=== PATIENT | female | born 1975 | race Caucasian/White ===

== ENCOUNTER 2019-11-01 13:53 | Inpatient (IN) | payer MEDICAID ==
[~2019-11-01] VITALS: Ht 162.6 cm; Wt 68.1 kg
[~2019-11-01 13:53] MED LIST: RISP3 PO
[2019-11-01] MEDS ORDERED: LORazepam 2 MG TABLET PO PRN (17:30)
[2019-11-01] MEDS ORDERED: HALOPERIDOL 5 MG TABLET PO PRN (17:30)
[2019-11-01] MEDS ORDERED: ZOLPIDEM TARTRATE 10 MG TABLET PO PRN (17:30)
[2019-11-01 17:59] VITALS: BP 115/84
[2019-11-01] MEDS ORDERED: INFLUENZA VIRUS VACCINE QVS 2019-20 (3YR+)/PF 60 MCG/0.5 ML SYRINGE IM ONE (18:00)
[2019-11-01] MEDS ORDERED: PIPERONYL BUTOXIDE/PYRETHRINS 120 ML SHAMPOO TP ONE (18:45)
[2019-11-01] MEDS ORDERED: PERMETHRIN 5% 60 GM CREAM TP ONE (18:45)
[2019-11-01] MEDS ORDERED: GuaiFENesin/D-METHORPHAN [SUGAR-FREE] 200-20MG/10 ML SYRUP UDCUP PO PRN (20:30)
[2019-11-01] MEDS ORDERED: IBUPROFEN 400 MG TABLET PO PRN (20:30)
[2019-11-01] MEDS ORDERED: MAGNESIUM HYDROXIDE SUSPENSION 30 ML UDCUP PO PRN (20:30)
[2019-11-01] MEDS ORDERED: NICOTINE 14 MG/24 HOUR PATCH TD PRN (20:30)
[2019-11-01] MEDS ORDERED: ONDANSETRON HCL 4 MG TABLET PO PRN (20:30)
[2019-11-01] MEDS ORDERED: DOCUSATE SODIUM 100 MG CAPSULE PO PRN (20:30)
[2019-11-01] MEDS ORDERED: CloNIDine HCL 0.1 MG TABLET PO PRN (20:30)
[2019-11-01] MEDS ORDERED: MAG HYDROX/AL HYDROX/SIMETH ES 30 ML SUSPENSION UDCUP PO PRN (20:30)
[2019-11-01] MEDS ORDERED: ACETAMINOPHEN 325 MG TABLET PO PRN (20:30)
[2019-11-01] MEDS ORDERED: LOPERAMIDE HCL 2 MG CAPSULE PO PRN (20:30)
[2019-11-01] MEDS ORDERED: PETROLATUM,WHITE 28 GM JELLY TP PRN (20:30)
[2019-11-01] MEDS ORDERED: ALBUTEROL SULFATE HFA 90 MCG/PUFF 8 GM INHALER IH PRN (20:30)
[2019-11-02 00:58] VITALS: BP 105/78
[2019-11-02 08:08] VITALS: BP 100/65
[2019-11-02] MEDS: RisperiDONE 2 MG TABLET PO SCH ×2 (12:38→21:35)
[2019-11-02 20:25] VITALS: BP 92/67
[2019-11-03] MEDS: RisperiDONE 2 MG TABLET PO SCH ×2 (08:54→21:00)
[2019-11-03 16:19] VITALS: BP 102/64
[2019-11-04 08:08] VITALS: BP 114/63
[2019-11-04] MEDS: RisperiDONE 2 MG TABLET PO SCH ×2 (08:22→20:49)
[2019-11-04] MEDS ORDERED: PIPERONYL BUTOXIDE/PYRETHRINS 120 ML SHAMPOO TP ONE (09:00)
[2019-11-04 16:06] VITALS: BP 106/66
[2019-11-05 02:39] VITALS: BP 112/68
[2019-11-05] MEDS: RisperiDONE 2 MG TABLET PO SCH ×2 (07:58→20:32)
[2019-11-05 16:00] VITALS: BP 106/68
[2019-11-06] MEDS: RisperiDONE 2 MG TABLET PO SCH ×2 (08:08→20:57)
[2019-11-06 17:20] VITALS: BP 104/65
[2019-11-07] MEDS: RisperiDONE 2 MG TABLET PO SCH (08:00)
[2019-11-07 08:05] VITALS: BP 100/74
[2019-11-07] MEDS ORDERED: RisperiDONE 3 MG TABLET PO SCH (09:45)
[2019-11-07] MEDS ORDERED: RisperiDONE 1 MG TABLET PO ONE (10:00)
[2019-11-07 16:05] VITALS: BP 116/65
[2019-11-07] MEDS: RisperiDONE 3 MG TABLET PO SCH (21:00)
[2019-11-08 06:47] VITALS: BP 95/67
[2019-11-08 08:25] VITALS: BP 114/61
[2019-11-08] MEDS: MULTIVITAMINS WITH MINERALS, THERAPEUTIC TABLET PO SCH (08:34)
[2019-11-08] MEDS: RisperiDONE 3 MG TABLET PO SCH ×2 (08:34→20:20)
[2019-11-08 16:15] VITALS: BP 106/65
[2019-11-09 04:52] VITALS: BP 101/62
[2019-11-09] MEDS: MULTIVITAMINS WITH MINERALS, THERAPEUTIC TABLET PO SCH (08:08)
[2019-11-09] MEDS: RisperiDONE 3 MG TABLET PO SCH ×2 (08:08→19:24)
[2019-11-09 08:10] VITALS: BP 100/68
[2019-11-09 16:00] VITALS: BP 115/68
[2019-11-10 05:10] VITALS: BP 105/72
[2019-11-10 08:01] VITALS: BP 98/66
[2019-11-10] MEDS: MULTIVITAMINS WITH MINERALS, THERAPEUTIC TABLET PO SCH (08:17)
[2019-11-10] MEDS: RisperiDONE 3 MG TABLET PO SCH ×2 (08:18→20:51)
[2019-11-10 08:41] LABS: HEMATOCRIT 39.7 % (36-46); HEMOGLOBIN 12.8 g/dL (12.0-16.0); LYMPHOCYTES # (AUTO) 1.8 K/uL (1.0-4.8); LYMPHOCYTES % (AUTO) 34.7 % (22.0-44.0); MEAN CORPUSCULAR HGB CONC 32.3 G/dL (31.0-37.0); MEAN CORPUSCULAR VOLUME 80 fL (80-100); MONOCYTES # (AUTO) 0.4 K/uL (0.1-1.0); MONOCYTES % (AUTO) 7.5 % (2.0-9.0); NEUTROPHILS # (AUTO) 2.5 K/uL (1.8-7.7); NEUTROPHILS % (AUTO) 47.8 % (40.0-70.0); PLATELET COUNT (AUTO) 195 K/uL (150-450); RED BLOOD CELL COUNT(AUTO) 4.94 MIL/uL (4.00-5.20); RED CELL DISTRIBUTION WIDTH 19.4 % (11.5-14.5)
[2019-11-10 09:11] LABS: HEMOGLOBIN A1C 5.5 % (4.5-6.2)
[2019-11-10 09:23] LABS: ALANINE AMINOTRANSFERASE 19 U/L (12-78); ALBUMIN 3.3 g/dL (3.4-5.0); ALKALINE PHOSPHATASE 63 U/L (46-116); ANION GAP 4 mmol/L (8-16); ASPARTATE AMINOTRANSFERASE 10 U/L (15-37); BILIRUBIN,TOTAL 0.1 mg/dL (0.1-1.0); CALCIUM, TOTAL 8.8 mg/dL (8.8-10.5); CARBON DIOXIDE 31 mmol/L (22-29); CHLORIDE 106 mmol/L (98-107); CHOL/HDL RATIO 4.7 (3.9-5.7); CHOLESTEROL 211 mg/dL (131-200); CREATININE 0.69 mg/dL (0.60-1.30); FREE T4 (FREE THYROXINE) 0.78 ng/dL (0.76-1.46); GLOMERULAR FILTR. RATE CALC > 60 mL/min (>60); GLUCOSE,RANDOM 87 mg/dL (70-110); HDL CHOLESTEROL 45 mg/dL (40-60); LDL CHOL (CALC.) 151 mg/dL (0-130); POTASSIUM 4.2 mmol/L (3.5-5.1); SODIUM SERUM 141 mmol/L (136-145); THYROID STIMULATING HORMONE 0.94 uIU/mL (0.36-3.74); TOTAL PROTEIN, SERUM 6.2 g/dL (6.4-8.2); TRIGLYCERIDES 76 mg/dL (15-150); UREA NITROGEN, BLOOD 12 mg/dL (7-18)
[2019-11-10] MEDS: BuPROPion HCL XL 150 MG ER TABLET PO SCH (12:29)
[2019-11-10 16:45] VITALS: BP 100/69
[2019-11-11 04:25] VITALS: BP 101/62
[2019-11-11] MEDS: RisperiDONE 3 MG TABLET PO SCH ×2 (08:28→21:05)
[2019-11-11] MEDS: BuPROPion HCL XL 150 MG ER TABLET PO SCH (08:28)
[2019-11-11] MEDS: MULTIVITAMINS WITH MINERALS, THERAPEUTIC TABLET PO SCH (08:28)
[2019-11-11 08:32] VITALS: BP 123/78
[2019-11-11 16:00] VITALS: BP 101/66
[2019-11-12 04:59] VITALS: BP 100/76
[2019-11-12 08:05] VITALS: BP 106/65
[2019-11-12] MEDS: BuPROPion HCL XL 150 MG ER TABLET PO SCH (08:35)
[2019-11-12] MEDS: RisperiDONE 3 MG TABLET PO SCH ×2 (08:35→20:04)
[2019-11-12] MEDS: MULTIVITAMINS WITH MINERALS, THERAPEUTIC TABLET PO SCH (08:35)
[2019-11-12 16:40] VITALS: BP 106/62
[2019-11-13 05:01] VITALS: BP 100/65
[2019-11-13] MEDS: RisperiDONE 3 MG TABLET PO SCH ×2 (08:21→20:33)
[2019-11-13] MEDS: BuPROPion HCL XL 150 MG ER TABLET PO SCH (08:21)
[2019-11-13] MEDS: MULTIVITAMINS WITH MINERALS, THERAPEUTIC TABLET PO SCH (08:21)
[2019-11-13] MEDS: MULTIVITAMINS WITH MINERALS, THERAPEUTIC 15 ML UDCUP PO SCH (10:15)
[2019-11-13 17:44] VITALS: BP 96/67
[2019-11-14 04:39] VITALS: BP 100/62
[2019-11-14] MEDS: MULTIVITAMINS WITH MINERALS, THERAPEUTIC 15 ML UDCUP PO SCH (08:18)
[2019-11-14] MEDS: BuPROPion HCL XL 150 MG ER TABLET PO SCH (08:19)
[2019-11-14] MEDS: RisperiDONE 3 MG TABLET PO SCH ×2 (08:19→21:15)
[2019-11-14 11:10] VITALS: BP 87/61
[2019-11-14 18:15] VITALS: BP 117/72
[2019-11-15 05:43] VITALS: BP 112/62
[2019-11-15 08:04] VITALS: BP 117/60
[2019-11-15] MEDS: RisperiDONE 3 MG TABLET PO SCH ×2 (08:25→20:18)
[2019-11-15] MEDS: MULTIVITAMINS WITH MINERALS, THERAPEUTIC 15 ML UDCUP PO SCH (08:25)
[2019-11-15] MEDS: BuPROPion HCL XL 150 MG ER TABLET PO SCH (08:25)
[2019-11-15 16:00] VITALS: BP 108/74
[2019-11-16 05:06] VITALS: BP 101/62
[2019-11-16 08:11] VITALS: BP 90/51
[2019-11-16] MEDS: BuPROPion HCL XL 150 MG ER TABLET PO SCH (08:14)
[2019-11-16] MEDS: RisperiDONE 3 MG TABLET PO SCH ×2 (08:14→21:23)
[2019-11-16] MEDS: MULTIVITAMINS WITH MINERALS, THERAPEUTIC 15 ML UDCUP PO SCH (08:17)
[2019-11-16] MEDS: DIVALPROEX SODIUM 500 MG DR TABLET PO SCH ×2 (14:57→21:23)
[2019-11-16 16:01] VITALS: BP 113/73
[2019-11-17 05:31] VITALS: BP 138/75
[2019-11-17 08:01] VITALS: BP 90/60
[2019-11-17] MEDS: BuPROPion HCL XL 150 MG ER TABLET PO SCH (08:05)
[2019-11-17] MEDS: RisperiDONE 3 MG TABLET PO SCH ×2 (08:05→20:19)
[2019-11-17] MEDS: DIVALPROEX SODIUM 500 MG DR TABLET PO SCH ×2 (08:08→20:18)
[2019-11-17] MEDS: MULTIVITAMINS WITH MINERALS, THERAPEUTIC 15 ML UDCUP PO SCH (08:11)
[2019-11-17 19:17] VITALS: BP 94/60
[2019-11-18 04:50] VITALS: BP 100/77
[2019-11-18 08:24] VITALS: BP 100/53
[2019-11-18] MEDS: MULTIVITAMINS WITH MINERALS, THERAPEUTIC 15 ML UDCUP PO SCH (09:00)
[2019-11-18] MEDS: BuPROPion HCL XL 150 MG ER TABLET PO SCH (09:05)
[2019-11-18] MEDS: DIVALPROEX SODIUM 500 MG DR TABLET PO SCH ×2 (09:05→20:14)
[2019-11-18] MEDS: RisperiDONE 3 MG TABLET PO SCH ×2 (09:05→20:14)
[2019-11-18 16:01] VITALS: BP 97/65
[2019-11-19 04:33] VITALS: BP_SYST 101; BP_SYST 76; BP_DIAS 101; BP_DIAS 76
[2019-11-19] MEDS: BuPROPion HCL XL 150 MG ER TABLET PO SCH (08:06)
[2019-11-19] MEDS: DIVALPROEX SODIUM 500 MG DR TABLET PO SCH ×2 (08:06→20:29)
[2019-11-19] MEDS: RisperiDONE 3 MG TABLET PO SCH ×2 (08:06→20:28)
[2019-11-19] MEDS: MULTIVITAMINS WITH MINERALS, THERAPEUTIC 15 ML UDCUP PO SCH (08:09)
[2019-11-19 08:16] VITALS: BP 101/62
[2019-11-19 16:12] VITALS: BP 100/61
[2019-11-20 04:58] VITALS: BP 105/65
[2019-11-20 08:15] VITALS: BP 100/62
[2019-11-20] MEDS: BuPROPion HCL XL 150 MG ER TABLET PO SCH (09:19)
[2019-11-20] MEDS: DIVALPROEX SODIUM 500 MG DR TABLET PO SCH ×2 (09:19→20:27)
[2019-11-20] MEDS: MULTIVITAMINS WITH MINERALS, THERAPEUTIC 15 ML UDCUP PO SCH (09:19)
[2019-11-20] MEDS: RisperiDONE 3 MG TABLET PO SCH ×2 (09:19→20:27)
[2019-11-20 16:04] VITALS: BP 99/68
[2019-11-21 05:06] VITALS: BP 101/62
[2019-11-21 08:08] VITALS: BP 98/60
[2019-11-21] MEDS: RisperiDONE 3 MG TABLET PO SCH (08:21)
[2019-11-21] MEDS: DIVALPROEX SODIUM 500 MG DR TABLET PO SCH (08:22)
[2019-11-21] MEDS: MULTIVITAMINS WITH MINERALS, THERAPEUTIC 15 ML UDCUP PO SCH (08:36)
[2019-11-21] MEDS ORDERED: BuPROPion HCL XL 150 MG ER TABLET PO SCH (09:00)
[2019-11-21] MEDS ORDERED: DIVA-78 PO (09:07)
[2019-11-21] MEDS ORDERED: BUPR-47 PO (09:07)
[2019-11-21] MEDS ORDERED: RISP3 PO (09:07)
[2019-11-21 16:11] VITALS: BP 96/66
== END 2019-11-21 18:36 | disposition home or self-care (01) | DRG 750 ==
LOC: B3A 17:29
PROVIDERS: ADMIT Psychiatry & Neurology Child & Adolescent Psychiatry
DX: F25.1 Schizoaffective disorder, depressive type (principal); R45.851 Suicidal ideations; Z59.0 Homelessness; D64.9 Anemia, unspecified; B85.0 Pediculosis due to Pediculus humanus capitis; J45.909 Unspecified asthma, uncomplicated; Z79.899 Other long term (current) drug therapy; Z28.21 Immunization not carried out because of patient refusal
CPT/HCPCS: 83036; 84439; 84443; 90686

== ENCOUNTER 2020-05-29 17:19 | Inpatient (IN) | payer MEDICAID, OTHER ==
[~2020-05-29] VITALS: Ht 162.6 cm; Wt 65.4 kg
[~2020-05-29 17:19] MED LIST changes: +BUPR-47 PO; +DIVA-112 PO; -RISP3 PO; +RISP3TAB14 PO
[2020-05-29 17:54] LABS: BASOPHILS % (AUTO) 1.3 % (0.0-2.0); HEMATOCRIT 38.4 % (36-46); HEMOGLOBIN 12.4 g/dL (12.0-16.0); LYMPHOCYTES # (AUTO) 1.8 K/uL (1.0-4.8); LYMPHOCYTES % (AUTO) 26.1 % (22.0-44.0); MEAN CORPUSCULAR HEMOGLOBIN 25.5 pg (26.0-34.0); MEAN CORPUSCULAR HGB CONC 32.2 G/dL (31.0-37.0); MEAN CORPUSCULAR VOLUME 79 fL (80-100); MONOCYTES # (AUTO) 0.5 K/uL (0.1-1.0); MONOCYTES % (AUTO) 6.7 % (2.0-9.0); NEUTROPHILS # (AUTO) 4.6 K/uL (1.8-7.7); NEUTROPHILS % (AUTO) 64.9 % (40.0-70.0); PLATELET COUNT (AUTO) 331 K/uL (150-450); RED BLOOD CELL COUNT(AUTO) 4.85 MIL/uL (4.00-5.20); RED CELL DISTRIBUTION WIDTH 15.8 % (11.5-14.5)
[2020-05-29 18:10] LABS: ANION GAP 15 mmol/L (8-16); CALCIUM, TOTAL 9.6 mg/dL (8.8-10.5); CARBON DIOXIDE 24 mmol/L (22-29); CHLORIDE 103 mmol/L (98-107); CREATININE 1.15 mg/dL (0.60-1.30); GLOMERULAR FILTR. RATE CALC 51 mL/min (>60); GLUCOSE,RANDOM 154 mg/dL (70-110); POTASSIUM 3.2 mmol/L (3.5-5.1); SODIUM SERUM 142 mmol/L (136-145); UREA NITROGEN, BLOOD 21 mg/dL (7-18)
[2020-05-29 18:17] LABS: ALANINE AMINOTRANSFERASE 22 U/L (12-78); ALKALINE PHOSPHATASE 79 U/L (46-116); ASPARTATE AMINOTRANSFERASE 15 U/L (15-37); BILIRUBIN,TOTAL 0.6 mg/dL (0.1-1.0); HCG,QUANTITATIVE < 1 mIU/mL (0-6); TOTAL PROTEIN, SERUM 8.3 g/dL (6.4-8.2)
[2020-05-29 18:18] LABS: VALPROIC ACID < 3 mcg/mL (50-100)
[2020-05-29] MEDS ORDERED: HALOPERIDOL 5 MG TABLET PO ONE (19:15)
[2020-05-29] MEDS ORDERED: BENZTROPINE MESYLATE 2 MG TABLET PO ONE (19:15)
[2020-05-29] MEDS ORDERED: POTASSIUM CHLORIDE 10% 40 MEQ/30 ML LIQUID UDCUP PO ONE (19:15)
[2020-05-29] MEDS ORDERED: LORazepam 2 MG TABLET PO PRN (20:00)
[2020-05-29] MEDS ORDERED: HALOPERIDOL 5 MG TABLET PO PRN (20:00)
[2020-05-29] MEDS ORDERED: ZOLPIDEM TARTRATE 10 MG TABLET PO PRN (20:00)
[2020-05-29 22:03] VITALS: BP 111/81
[2020-05-30] MEDS ORDERED: PNEUMOCOCCAL VACCINE POLYVALENT 0.5 ML VIAL [PPSV23] IM ONE (00:30)
[2020-05-30 01:25] VITALS: BP 105/78
[2020-05-30] MEDS ORDERED: MAG HYDROX/AL HYDROX/SIMETH ES 30 ML SUSPENSION UDCUP PO PRN (07:15)
[2020-05-30] MEDS ORDERED: DOCUSATE SODIUM 100 MG CAPSULE PO PRN (07:15)
[2020-05-30] MEDS ORDERED: LOPERAMIDE HCL 2 MG CAPSULE PO PRN (07:15)
[2020-05-30] MEDS ORDERED: CloNIDine HCL 0.1 MG TABLET PO PRN (07:15)
[2020-05-30] MEDS ORDERED: MAGNESIUM HYDROXIDE SUSPENSION 30 ML UDCUP PO PRN (07:15)
[2020-05-30] MEDS ORDERED: ALBUTEROL SULFATE HFA 90 MCG/PUFF 8 GM INHALER IH PRN (07:15)
[2020-05-30] MEDS ORDERED: PETROLATUM,WHITE 28 GM JELLY TP PRN (07:15)
[2020-05-30] MEDS ORDERED: NICOTINE 14 MG/24 HOUR PATCH TD PRN (07:15)
[2020-05-30] MEDS ORDERED: GuaiFENesin/D-METHORPHAN [SUGAR-FREE] 200-20MG/10 ML SYRUP UDCUP PO PRN (07:15)
[2020-05-30] MEDS ORDERED: ACETAMINOPHEN 325 MG TABLET PO PRN (07:15)
[2020-05-30] MEDS ORDERED: IBUPROFEN 400 MG TABLET PO PRN (07:15)
[2020-05-30] MEDS ORDERED: ONDANSETRON HCL 4 MG TABLET PO PRN (07:15)
[2020-05-30 17:35] VITALS: BP 100/76
[2020-05-30] MEDS: DIVALPROEX SODIUM 500 MG DR TABLET PO SCH (20:14)
[2020-05-30] MEDS: RisperiDONE 3 MG TABLET PO SCH (20:14)
[2020-05-31] MEDS: DIVALPROEX SODIUM 500 MG DR TABLET PO SCH ×2 (08:47→20:23)
[2020-05-31] MEDS: RisperiDONE 3 MG TABLET PO SCH ×2 (08:47→20:23)
[2020-05-31] MEDS: BuPROPion HCL XL 150 MG ER TABLET PO SCH (08:47)
[2020-05-31 09:06] VITALS: BP 105/64
[2020-05-31 09:17] LABS: CHOL/HDL RATIO 6.8 (3.9-5.7); FREE T4 (FREE THYROXINE) 1.53 ng/dL (0.76-1.46); POTASSIUM 3.4 mmol/L (3.5-5.1); THYROID STIMULATING HORMONE 1.18 uIU/mL (0.36-3.74)
[2020-05-31] MEDS ORDERED: POTASSIUM CHLORIDE 20 MEQ ER TABLET PO ONE (15:30)
[2020-05-31 16:45] VITALS: BP 106/60
[2020-05-31] MEDS: SIMVASTATIN 10 MG TABLET PO SCH (20:23)
[2020-06-01 02:00] VITALS: BP 102/61
[2020-06-01] MEDS: BuPROPion HCL XL 150 MG ER TABLET PO SCH (09:00)
[2020-06-01] MEDS: RisperiDONE 3 MG TABLET PO SCH ×2 (09:00→20:49)
[2020-06-01] MEDS: DIVALPROEX SODIUM 500 MG DR TABLET PO SCH ×2 (09:00→20:49)
[2020-06-01 09:38] VITALS: BP 135/78
[2020-06-01] MEDS: SIMVASTATIN 10 MG TABLET PO SCH (20:49)
[2020-06-02 02:14] VITALS: BP 110/84
[2020-06-02] MEDS: DIVALPROEX SODIUM 500 MG DR TABLET PO SCH ×2 (08:28→20:40)
[2020-06-02] MEDS: BuPROPion HCL XL 150 MG ER TABLET PO SCH (08:29)
[2020-06-02] MEDS: RisperiDONE 3 MG TABLET PO SCH ×2 (08:29→20:40)
[2020-06-02 09:21] VITALS: BP 98/72
[2020-06-02 16:25] VITALS: BP 108/74
[2020-06-02] MEDS: SIMVASTATIN 10 MG TABLET PO SCH (20:40)
[2020-06-03 04:13] VITALS: BP 115/70
[2020-06-03 08:23] VITALS: BP 105/65
[2020-06-03] MEDS: RisperiDONE 3 MG TABLET PO SCH ×2 (09:04→20:57)
[2020-06-03] MEDS: DIVALPROEX SODIUM 500 MG DR TABLET PO SCH ×2 (09:04→20:56)
[2020-06-03] MEDS: BuPROPion HCL XL 150 MG ER TABLET PO SCH (09:04)
[2020-06-03 16:10] VITALS: BP 100/71
[2020-06-03] MEDS: SIMVASTATIN 10 MG TABLET PO SCH (20:57)
[2020-06-04 04:04] VITALS: BP 113/67
[2020-06-04] MEDS: DIVALPROEX SODIUM 500 MG DR TABLET PO SCH ×2 (09:00→20:24)
[2020-06-04] MEDS: BuPROPion HCL XL 150 MG ER TABLET PO SCH (09:00)
[2020-06-04] MEDS: RisperiDONE 3 MG TABLET PO SCH ×2 (09:00→20:24)
[2020-06-04 09:06] VITALS: BP 106/62
[2020-06-04 16:04] VITALS: BP 102/69
[2020-06-04] MEDS: SIMVASTATIN 10 MG TABLET PO SCH (20:24)
[2020-06-05 05:29] VITALS: BP 112/70
[2020-06-05 08:24] VITALS: BP 89/56
[2020-06-05] MEDS: OMEGA-3/DHA/EPA/FISH OIL 1,000 MG CAPSULE PO SCH (08:42)
[2020-06-05] MEDS: DIVALPROEX SODIUM 500 MG DR TABLET PO SCH ×2 (08:42→20:03)
[2020-06-05] MEDS: RisperiDONE 3 MG TABLET PO SCH ×2 (08:42→20:03)
[2020-06-05] MEDS: BuPROPion HCL XL 150 MG ER TABLET PO SCH (08:42)
[2020-06-05 13:54] VITALS: BP 103/72
[2020-06-05 17:16] VITALS: BP 106/62
[2020-06-05] MEDS: SIMVASTATIN 10 MG TABLET PO SCH (20:03)
[2020-06-06 00:54] VITALS: BP 103/62
[2020-06-06] MEDS: RisperiDONE 3 MG TABLET PO SCH ×2 (11:09→20:17)
[2020-06-06] MEDS: OMEGA-3/DHA/EPA/FISH OIL 1,000 MG CAPSULE PO SCH (11:10)
[2020-06-06] MEDS: BuPROPion HCL XL 150 MG ER TABLET PO SCH (11:10)
[2020-06-06] MEDS: DIVALPROEX SODIUM 500 MG DR TABLET PO SCH ×2 (11:10→20:17)
[2020-06-06 11:12] VITALS: BP 106/60
[2020-06-06 16:41] VITALS: BP 124/71
[2020-06-06] MEDS: SIMVASTATIN 10 MG TABLET PO SCH (20:17)
[2020-06-07 06:29] VITALS: BP 111/69
[2020-06-07 08:19] VITALS: BP 110/70
[2020-06-07] MEDS: RisperiDONE 3 MG TABLET PO SCH ×2 (09:00→21:07)
[2020-06-07] MEDS: BuPROPion HCL XL 150 MG ER TABLET PO SCH (09:00)
[2020-06-07] MEDS: OMEGA-3/DHA/EPA/FISH OIL 1,000 MG CAPSULE PO SCH (09:00)
[2020-06-07] MEDS: DIVALPROEX SODIUM 500 MG DR TABLET PO SCH ×2 (09:00→21:07)
[2020-06-07 19:13] VITALS: BP 90/70
[2020-06-07] MEDS: SIMVASTATIN 10 MG TABLET PO SCH (21:07)
[2020-06-08 00:03] VITALS: BP 106/67
[2020-06-08] MEDS: OMEGA-3/DHA/EPA/FISH OIL 1,000 MG CAPSULE PO SCH (09:00)
[2020-06-08] MEDS: BuPROPion HCL XL 150 MG ER TABLET PO SCH (09:00)
[2020-06-08] MEDS: RisperiDONE 3 MG TABLET PO SCH ×2 (09:00→20:22)
[2020-06-08] MEDS: DIVALPROEX SODIUM 500 MG DR TABLET PO SCH ×2 (09:00→20:22)
[2020-06-08 09:18] VITALS: BP 109/67
[2020-06-08 16:00] VITALS: BP 89/65
[2020-06-08] MEDS: SIMVASTATIN 10 MG TABLET PO SCH (20:22)
[2020-06-09 00:32] VITALS: BP 119/75
[2020-06-09] MEDS: DIVALPROEX SODIUM 500 MG DR TABLET PO SCH ×2 (08:49→20:13)
[2020-06-09] MEDS: BuPROPion HCL XL 150 MG ER TABLET PO SCH (08:49)
[2020-06-09] MEDS: OMEGA-3/DHA/EPA/FISH OIL 1,000 MG CAPSULE PO SCH (08:49)
[2020-06-09] MEDS: RisperiDONE 3 MG TABLET PO SCH ×2 (08:49→20:13)
[2020-06-09 10:39] VITALS: BP 98/62
[2020-06-09 16:37] VITALS: BP 97/63
[2020-06-09] MEDS: SIMVASTATIN 10 MG TABLET PO SCH (20:13)
[2020-06-10 00:43] VITALS: BP 100/62
[2020-06-10] MEDS: DIVALPROEX SODIUM 500 MG DR TABLET PO SCH ×2 (09:17→20:07)
[2020-06-10] MEDS: RisperiDONE 3 MG TABLET PO SCH ×2 (09:17→20:07)
[2020-06-10] MEDS: OMEGA-3/DHA/EPA/FISH OIL 1,000 MG CAPSULE PO SCH (09:17)
[2020-06-10] MEDS: BuPROPion HCL XL 150 MG ER TABLET PO SCH (09:17)
[2020-06-10 14:06] VITALS: BP 98/62
[2020-06-10 16:30] VITALS: BP 95/60
[2020-06-10] MEDS: SIMVASTATIN 10 MG TABLET PO SCH (20:07)
[2020-06-11] VITALS: BP 100/61
[2020-06-11 08:16] VITALS: BP 133/81
[2020-06-11] MEDS: DIVALPROEX SODIUM 500 MG DR TABLET PO SCH ×2 (08:34→20:51)
[2020-06-11] MEDS: BuPROPion HCL XL 150 MG ER TABLET PO SCH (08:35)
[2020-06-11] MEDS: RisperiDONE 3 MG TABLET PO SCH ×2 (08:35→20:51)
[2020-06-11] MEDS: OMEGA-3/DHA/EPA/FISH OIL 1,000 MG CAPSULE PO SCH (09:00)
[2020-06-11 16:04] VITALS: BP 93/67
[2020-06-11] MEDS: SIMVASTATIN 10 MG TABLET PO SCH (20:51)
[2020-06-12 04:23] VITALS: BP 100/68
[2020-06-12] MEDS: BuPROPion HCL XL 150 MG ER TABLET PO SCH (09:00)
[2020-06-12] MEDS: RisperiDONE 3 MG TABLET PO SCH ×2 (09:00→20:07)
[2020-06-12] MEDS: OMEGA-3/DHA/EPA/FISH OIL 1,000 MG CAPSULE PO SCH (09:00)
[2020-06-12] MEDS: DIVALPROEX SODIUM 500 MG DR TABLET PO SCH ×2 (09:00→20:07)
[2020-06-12 17:50] VITALS: BP 90/63
[2020-06-12] MEDS: SIMVASTATIN 10 MG TABLET PO SCH (20:07)
[2020-06-13 00:09] VITALS: BP 102/61
[2020-06-13] MEDS: OMEGA-3/DHA/EPA/FISH OIL 1,000 MG CAPSULE PO SCH (08:20)
[2020-06-13] MEDS: RisperiDONE 3 MG TABLET PO SCH ×2 (08:20→20:12)
[2020-06-13] MEDS: DIVALPROEX SODIUM 500 MG DR TABLET PO SCH ×2 (08:20→20:12)
[2020-06-13] MEDS: BuPROPion HCL XL 150 MG ER TABLET PO SCH (08:20)
[2020-06-13 09:47] VITALS: BP 90/62
[2020-06-13 16:35] VITALS: BP 91/71
[2020-06-13] MEDS: SIMVASTATIN 10 MG TABLET PO SCH (20:12)
[2020-06-14 00:58] VITALS: BP 98/63
[2020-06-14] MEDS: BuPROPion HCL XL 150 MG ER TABLET PO SCH (08:20)
[2020-06-14] MEDS: DIVALPROEX SODIUM 500 MG DR TABLET PO SCH ×2 (08:20→21:27)
[2020-06-14] MEDS: RisperiDONE 3 MG TABLET PO SCH ×2 (08:20→21:27)
[2020-06-14] MEDS: OMEGA-3/DHA/EPA/FISH OIL 1,000 MG CAPSULE PO SCH (08:28)
[2020-06-14 08:32] VITALS: BP 110/64
[2020-06-14 17:31] VITALS: BP 90/66
[2020-06-14] MEDS: SIMVASTATIN 10 MG TABLET PO SCH (21:27)
[2020-06-15 00:51] VITALS: BP 102/64
[2020-06-15] MEDS: RisperiDONE 3 MG TABLET PO SCH (08:20)
[2020-06-15] MEDS: OMEGA-3/DHA/EPA/FISH OIL 1,000 MG CAPSULE PO SCH (08:20)
[2020-06-15] MEDS: DIVALPROEX SODIUM 500 MG DR TABLET PO SCH (08:20)
[2020-06-15] MEDS: BuPROPion HCL XL 150 MG ER TABLET PO SCH (08:20)
[2020-06-15 09:43] VITALS: BP 107/60
[2020-06-15] MEDS ORDERED: OMEG100033 PO (11:20)
[2020-06-15] MEDS ORDERED: SIMV-259 PO (11:20)
== END 2020-06-15 13:13 | disposition home or self-care (01) | DRG 750 ==
LOC: EMS 17:20 → B2S 19:51
PROVIDERS: ADMIT Psychiatry & Neurology Child & Adolescent Psychiatry; ATTEND Psychiatry & Neurology Child & Adolescent Psychiatry
DX: F25.0 Schizoaffective disorder, bipolar type (principal); D64.9 Anemia, unspecified; E78.5 Hyperlipidemia, unspecified; E87.6 Hypokalemia; F94.0 Selective mutism; J45.909 Unspecified asthma, uncomplicated; R45.851 Suicidal ideations; Z91.5 Personal history of self-harm; Z20.828 Contact with and (suspected) exposure to other viral communicable diseases
CPT/HCPCS: 83036; 84132; 84439; 84443; G0480

== ENCOUNTER 2020-12-26 13:26 | Inpatient (IN) | payer MEDICAID, OTHER ==
[~2020-12-26] VITALS: Ht 162.6 cm; Wt 67.6 kg
[~2020-12-26 13:26] MED LIST changes: -BUPR-47 PO; +BUPR-49 PO; +OMEG100033 PO; -RISP3TAB14 PO; +RISP3TAB35 PO; +SIMV-259 PO
[2020-12-26 15:17] LABS: BASOPHILS % (AUTO) 0.4 % (0.0-2.0); EOSINOPHILS % (AUTO) 0.6 % (1.0-6.0); HEMATOCRIT 32.8 % (36-46); HEMOGLOBIN 10.4 g/dL (12.0-16.0); LYMPHOCYTES # (AUTO) 1.3 K/uL (1.0-4.8); LYMPHOCYTES % (AUTO) 13.9 % (22.0-44.0); MEAN CORPUSCULAR HEMOGLOBIN 24.5 pg (26.0-34.0); MEAN CORPUSCULAR HGB CONC 31.9 G/dL (31.0-37.0); MEAN CORPUSCULAR VOLUME 77 fL (80-100); MONOCYTES # (AUTO) 0.4 K/uL (0.1-1.0); MONOCYTES % (AUTO) 4.4 % (2.0-9.0); NEUTROPHILS # (AUTO) 7.3 K/uL (1.8-7.7); NEUTROPHILS % (AUTO) 80.7 % (40.0-70.0); PLATELET COUNT (AUTO) 267 K/uL (150-450); RED BLOOD CELL COUNT(AUTO) 4.26 MIL/uL (4.00-5.20); RED CELL DISTRIBUTION WIDTH 15.9 % (11.5-14.5)
[2020-12-26 15:26] LABS: ANION GAP 13 mmol/L (8-16); CALCIUM, TOTAL 8.7 mg/dL (8.8-10.5); CARBON DIOXIDE 25 mmol/L (22-29); CHLORIDE 103 mmol/L (98-107); CREATININE 0.63 mg/dL (0.60-1.30); GLOMERULAR FILTR. RATE CALC > 60 mL/min (>60); GLUCOSE,RANDOM 89 mg/dL (70-110); POTASSIUM 3.6 mmol/L (3.5-5.1); SODIUM SERUM 141 mmol/L (136-145); UREA NITROGEN, BLOOD 6 mg/dL (7-18)
[2020-12-26 15:32] LABS: ALANINE AMINOTRANSFERASE 19 U/L (12-78); ALBUMIN 3.4 g/dL (3.4-5.0); ALKALINE PHOSPHATASE 72 U/L (46-116); ASPARTATE AMINOTRANSFERASE 14 U/L (15-37); BILIRUBIN,TOTAL 0.7 mg/dL (0.1-1.0)
[2020-12-26 15:45] LABS: VALPROIC ACID < 3 mcg/mL (50-100)
[2020-12-26 16:14] LABS: COVID AG,FIA SOURCE NASOPHARYNGEAL
[2020-12-26] MEDS ORDERED: ZOLPIDEM TARTRATE 10 MG TABLET PO PRN (16:30)
[2020-12-26] MEDS ORDERED: LORazepam 2 MG TABLET PO PRN (16:30)
[2020-12-26] MEDS ORDERED: HALOPERIDOL 5 MG TABLET PO PRN (16:30)
[2020-12-26 16:39] LABS: HCG,QUANTITATIVE < 1 mIU/mL (0-6)
[2020-12-26 20:13] VITALS: BP 113/69
[2020-12-26] MEDS ORDERED: PNEUMOCOCCAL VACCINE POLYVALENT 0.5 ML VIAL [PPSV23] IM ONE (20:45)
[2020-12-26] MEDS ORDERED: INFLUENZA VIRUS VACCINE QVS 2020-21 (6MO+)/PF 60 MCG/0.5 ML SYRINGE IM ONE (20:45)
[2020-12-27 04:33] VITALS: BP 112/62
[2020-12-27 08:14] VITALS: BP 114/74
[2020-12-27] MEDS: BuPROPion HCL XL 150 MG ER TABLET PO SCH (10:03)
[2020-12-27] MEDS: DIVALPROEX SODIUM 500 MG ER TABLET PO SCH ×2 (10:03→20:25)
[2020-12-27] MEDS: RisperiDONE 3 MG TABLET PO SCH ×2 (10:03→20:25)
[2020-12-27] MEDS ORDERED: PETROLATUM,WHITE 28 GM JELLY TP PRN (11:00)
[2020-12-27] MEDS ORDERED: ACETAMINOPHEN 325 MG TABLET PO PRN (11:00)
[2020-12-27] MEDS ORDERED: LOPERAMIDE HCL 2 MG CAPSULE PO PRN (11:00)
[2020-12-27] MEDS ORDERED: DOCUSATE SODIUM 100 MG CAPSULE PO PRN (11:00)
[2020-12-27] MEDS ORDERED: BENZOCAINE/MENTHOL LOZENGE PO PRN (11:00)
[2020-12-27] MEDS ORDERED: IBUPROFEN 600 MG TABLET PO PRN (11:00)
[2020-12-27] MEDS ORDERED: ALBUTEROL SULFATE HFA 90 MCG/PUFF 8 GM INHALER IH PRN (11:00)
[2020-12-27] MEDS ORDERED: MAG HYDROX/AL HYDROX/SIMETH ES 30 ML SUSPENSION UDCUP PO PRN (11:00)
[2020-12-27] MEDS ORDERED: ONDANSETRON HCL 4 MG TABLET PO PRN (11:00)
[2020-12-27] MEDS ORDERED: MAGNESIUM HYDROXIDE SUSPENSION 30 ML UDCUP PO PRN (11:00)
[2020-12-27] MEDS ORDERED: OMEPRAZOLE 20 MG CAPSULE PO PRN (11:00)
[2020-12-27] MEDS ORDERED: BACITRACIN 28 GM OINTMENT TP PRN (11:00)
[2020-12-27] MEDS ORDERED: CloNIDine HCL 0.1 MG TABLET PO PRN (11:00)
[2020-12-28 08:23] VITALS: BP 103/69
[2020-12-28] MEDS: RisperiDONE 3 MG TABLET PO SCH ×2 (08:26→20:18)
[2020-12-28] MEDS: DIVALPROEX SODIUM 500 MG ER TABLET PO SCH ×2 (08:26→20:22)
[2020-12-28] MEDS: BuPROPion HCL XL 150 MG ER TABLET PO SCH (08:26)
[2020-12-28] MEDS: MULTIVITAMINS WITH MINERALS, THERAPEUTIC TABLET PO SCH (08:33)
[2020-12-28 16:04] VITALS: BP 102/73
[2020-12-29 06:19] VITALS: BP 120/78
[2020-12-29] MEDS: MULTIVITAMINS WITH MINERALS, THERAPEUTIC TABLET PO SCH (09:00)
[2020-12-29] MEDS: DIVALPROEX SODIUM 500 MG ER TABLET PO SCH ×2 (09:00→20:03)
[2020-12-29] MEDS: RisperiDONE 3 MG TABLET PO SCH ×2 (09:16→20:03)
[2020-12-29] MEDS: BuPROPion HCL XL 150 MG ER TABLET PO SCH (09:21)
[2020-12-29 09:50] VITALS: BP 108/72
[2020-12-29 16:06] VITALS: BP 105/71
[2020-12-30 07:12] VITALS: BP 102/72
[2020-12-30] MEDS: MULTIVITAMINS WITH MINERALS, THERAPEUTIC TABLET PO SCH (09:00)
[2020-12-30] MEDS: DIVALPROEX SODIUM 500 MG ER TABLET PO SCH ×2 (09:01→20:03)
[2020-12-30] MEDS: RisperiDONE 3 MG TABLET PO SCH ×2 (09:01→20:04)
[2020-12-30] MEDS: BuPROPion HCL XL 150 MG ER TABLET PO SCH (09:01)
[2020-12-30 10:22] VITALS: BP 101/75
[2020-12-30 16:04] VITALS: BP 112/80
[2020-12-31 00:23] VITALS: BP 109/74
[2020-12-31 08:25] LABS: COVID AG,FIA SOURCE NASOPHARYNGEAL
[2020-12-31] MEDS: BuPROPion HCL XL 150 MG ER TABLET PO SCH (10:04)
[2020-12-31] MEDS: MULTIVITAMINS WITH MINERALS, THERAPEUTIC TABLET PO SCH (10:04)
[2020-12-31] MEDS: DIVALPROEX SODIUM 500 MG ER TABLET PO SCH ×2 (10:05→20:18)
[2020-12-31] MEDS: RisperiDONE 3 MG TABLET PO SCH ×2 (10:05→20:18)
[2020-12-31 13:31] VITALS: BP 105/62
[2020-12-31 16:15] VITALS: BP 103/74
[2021-01-01 00:30] VITALS: BP 107/72
[2021-01-01 07:56] LABS: BASOPHILS % (AUTO) 0.6 % (0.0-2.0); EOSINOPHILS % (AUTO) 3.2 % (1.0-6.0); HEMATOCRIT 34.1 % (36-46); HEMOGLOBIN 10.8 g/dL (12.0-16.0); LYMPHOCYTES % (AUTO) 44.3 % (22.0-44.0); MEAN CORPUSCULAR HEMOGLOBIN 24.3 pg (26.0-34.0); MEAN CORPUSCULAR HGB CONC 31.5 G/dL (31.0-37.0); MEAN CORPUSCULAR VOLUME 77 fL (80-100); MONOCYTES # (AUTO) 0.3 K/uL (0.1-1.0); MONOCYTES % (AUTO) 7.2 % (2.0-9.0); NEUTROPHILS % (AUTO) 44.7 % (40.0-70.0); PLATELET COUNT (AUTO) 279 K/uL (150-450); RED BLOOD CELL COUNT(AUTO) 4.43 MIL/uL (4.00-5.20); RED CELL DISTRIBUTION WIDTH 16.5 % (11.5-14.5)
[2021-01-01 08:09] LABS: HEMOGLOBIN A1C 5.2 % (3.8-5.6)
[2021-01-01 08:25] LABS: ALANINE AMINOTRANSFERASE 13 U/L (12-78); ALBUMIN 3.1 g/dL (3.4-5.0); ALKALINE PHOSPHATASE 67 U/L (46-116); ANION GAP 10 mmol/L (8-16); ASPARTATE AMINOTRANSFERASE 7 U/L (15-37); BILIRUBIN,TOTAL 0.3 mg/dL (0.1-1.0); CALCIUM, TOTAL 8.7 mg/dL (8.8-10.5); CARBON DIOXIDE 26 mmol/L (22-29); CHLORIDE 106 mmol/L (98-107); CHOL/HDL RATIO 4.2 (3.9-5.7); CHOLESTEROL 246 mg/dL (131-200); CREATININE 0.53 mg/dL (0.60-1.30); FREE T4 (FREE THYROXINE) 1.16 ng/dL (0.76-1.46); GLOMERULAR FILTR. RATE CALC > 60 mL/min (>60); GLUCOSE,RANDOM 83 mg/dL (70-110); HDL CHOLESTEROL 59 mg/dL (40-60); LDL CHOL (CALC.) 175 mg/dL (0-130); POTASSIUM 3.8 mmol/L (3.5-5.1); SODIUM SERUM 142 mmol/L (136-145); THYROID STIMULATING HORMONE 0.64 uIU/mL (0.36-3.74); TRIGLYCERIDES 61 mg/dL (15-150); UREA NITROGEN, BLOOD 9 mg/dL (7-18); VALPROIC ACID 94 mcg/mL (50-100)
[2021-01-01 08:26] VITALS: BP 110/69
[2021-01-01] MEDS: MULTIVITAMINS WITH MINERALS, THERAPEUTIC TABLET PO SCH (08:51)
[2021-01-01] MEDS: RisperiDONE 3 MG TABLET PO SCH ×2 (08:51→20:29)
[2021-01-01] MEDS: DIVALPROEX SODIUM 500 MG ER TABLET PO SCH ×2 (08:51→20:29)
[2021-01-01] MEDS: BuPROPion HCL XL 150 MG ER TABLET PO SCH (08:52)
[2021-01-01 16:08] VITALS: BP 100/62
[2021-01-02 01:03] VITALS: BP 102/62
[2021-01-02 08:07] VITALS: BP 105/56
[2021-01-02] MEDS: MULTIVITAMINS WITH MINERALS, THERAPEUTIC TABLET PO SCH (08:36)
[2021-01-02] MEDS: DIVALPROEX SODIUM 500 MG ER TABLET PO SCH ×2 (08:36→20:15)
[2021-01-02] MEDS: RisperiDONE 3 MG TABLET PO SCH ×2 (08:36→20:15)
[2021-01-02] MEDS: BuPROPion HCL XL 150 MG ER TABLET PO SCH (08:36)
[2021-01-02 16:01] VITALS: BP 100/65
[2021-01-03 00:15] VITALS: BP 103/84
[2021-01-03 08:04] VITALS: BP 101/73
[2021-01-03] MEDS: MULTIVITAMINS WITH MINERALS, THERAPEUTIC TABLET PO SCH (09:00)
[2021-01-03] MEDS: BuPROPion HCL XL 150 MG ER TABLET PO SCH (09:40)
[2021-01-03] MEDS: RisperiDONE 3 MG TABLET PO SCH ×2 (09:40→20:20)
[2021-01-03] MEDS: DIVALPROEX SODIUM 500 MG ER TABLET PO SCH ×2 (09:40→20:20)
[2021-01-03 16:08] VITALS: BP 121/65
[2021-01-04 00:34] VITALS: BP 104/62
[2021-01-04 08:05] VITALS: BP 102/71
[2021-01-04] MEDS: BuPROPion HCL XL 150 MG ER TABLET PO SCH (08:07)
[2021-01-04] MEDS: RisperiDONE 3 MG TABLET PO SCH ×2 (08:07→20:16)
[2021-01-04] MEDS: DIVALPROEX SODIUM 500 MG ER TABLET PO SCH ×2 (08:07→20:16)
[2021-01-04] MEDS: MULTIVITAMINS WITH MINERALS, THERAPEUTIC TABLET PO SCH (09:00)
[2021-01-04 16:01] VITALS: BP 110/69
[2021-01-05] VITALS: BP 102/73
[2021-01-05 08:01] VITALS: BP 102/53
[2021-01-05] MEDS: DIVALPROEX SODIUM 500 MG ER TABLET PO SCH ×2 (08:04→20:02)
[2021-01-05] MEDS: BuPROPion HCL XL 150 MG ER TABLET PO SCH (08:04)
[2021-01-05] MEDS: RisperiDONE 3 MG TABLET PO SCH ×2 (08:04→20:02)
[2021-01-05] MEDS: MULTIVITAMINS WITH MINERALS, THERAPEUTIC TABLET PO SCH (08:04)
[2021-01-05 16:03] VITALS: BP 109/74
[2021-01-06 00:28] VITALS: BP 100/66
[2021-01-06 08:14] VITALS: BP 101/60
[2021-01-06] MEDS: BuPROPion HCL XL 150 MG ER TABLET PO SCH (08:16)
[2021-01-06] MEDS: RisperiDONE 3 MG TABLET PO SCH ×2 (08:16→20:17)
[2021-01-06] MEDS: MULTIVITAMINS WITH MINERALS, THERAPEUTIC TABLET PO SCH (08:16)
[2021-01-06] MEDS: DIVALPROEX SODIUM 500 MG ER TABLET PO SCH ×2 (08:16→20:17)
[2021-01-06 16:02] VITALS: BP 102/70
[2021-01-07 00:05] VITALS: BP 100/73
[2021-01-07 08:08] VITALS: BP 100/68
[2021-01-07] MEDS: BuPROPion HCL XL 150 MG ER TABLET PO SCH (08:27)
[2021-01-07] MEDS: RisperiDONE 3 MG TABLET PO SCH ×2 (08:27→20:39)
[2021-01-07] MEDS: MULTIVITAMINS WITH MINERALS, THERAPEUTIC TABLET PO SCH (08:27)
[2021-01-07] MEDS: DIVALPROEX SODIUM 500 MG ER TABLET PO SCH ×2 (08:27→20:39)
[2021-01-07 16:06] VITALS: BP 109/76
[2021-01-08 01:32] VITALS: BP 102/74
[2021-01-08 08:08] VITALS: BP 108/62
[2021-01-08] MEDS: DIVALPROEX SODIUM 500 MG ER TABLET PO SCH ×2 (09:00→19:45)
[2021-01-08] MEDS: MULTIVITAMINS WITH MINERALS, THERAPEUTIC TABLET PO SCH (09:00)
[2021-01-08] MEDS: RisperiDONE 3 MG TABLET PO SCH ×2 (09:00→19:45)
[2021-01-08] MEDS: BuPROPion HCL XL 150 MG ER TABLET PO SCH (09:00)
[2021-01-08 16:08] VITALS: BP 100/70
[2021-01-09 01:19] VITALS: BP 106/72
[2021-01-09 08:00] VITALS: BP 112/82
[2021-01-09] MEDS: RisperiDONE 3 MG TABLET PO SCH ×2 (08:52→20:32)
[2021-01-09] MEDS: DIVALPROEX SODIUM 500 MG ER TABLET PO SCH ×2 (08:52→20:32)
[2021-01-09] MEDS: MULTIVITAMINS WITH MINERALS, THERAPEUTIC TABLET PO SCH (08:52)
[2021-01-09] MEDS: BuPROPion HCL XL 150 MG ER TABLET PO SCH (08:52)
[2021-01-09 16:16] VITALS: BP 102/64
[2021-01-10 04:27] VITALS: BP 108/67
[2021-01-10 08:03] VITALS: BP 103/62
[2021-01-10] MEDS: DIVALPROEX SODIUM 500 MG ER TABLET PO SCH (08:23)
[2021-01-10] MEDS: RisperiDONE 3 MG TABLET PO SCH (08:23)
[2021-01-10] MEDS: MULTIVITAMINS WITH MINERALS, THERAPEUTIC TABLET PO SCH (08:23)
[2021-01-10] MEDS: BuPROPion HCL XL 150 MG ER TABLET PO SCH (08:23)
[2021-01-10] MEDS ORDERED: BUPR-93 PO (09:07)
== END 2021-01-10 13:42 | disposition home or self-care (01) | DRG 750 ==
LOC: EMS 14:10 → B2S 17:11 → B3A 01-04 05:49
PROVIDERS: ADMIT Psychiatry & Neurology Psychiatry; ATTEND Psychiatry & Neurology Psychiatry
DX: F25.1 Schizoaffective disorder, depressive type (principal); I10 Essential (primary) hypertension; K21.9 Gastro-esophageal reflux disease without esophagitis; K59.00 Constipation, unspecified; F41.9 Anxiety disorder, unspecified; G47.00 Insomnia, unspecified; D64.9 Anemia, unspecified; E78.5 Hyperlipidemia, unspecified; J45.909 Unspecified asthma, uncomplicated; F31.9 Bipolar disorder, unspecified; Z20.822 Contact with and (suspected) exposure to COVID-19
CPT/HCPCS: 83036; 84439; 84443; 87426; 99285; G0480

== ENCOUNTER 2021-04-01 11:55 | Inpatient (IN) | payer MEDICAID, OTHER ==
[~2021-04-01] VITALS: Ht 162.6 cm; Wt 73.0 kg
[~2021-04-01 11:55] MED LIST changes: -BUPR-49 PO; +BUPR-93 PO; -OMEG100033 PO; -SIMV-259 PO
[2021-04-01 12:58] LABS: BASOPHILS % (AUTO) 0.6 % (0.0-2.0); EOSINOPHILS % (AUTO) 0 % (1.0-6.0); HEMATOCRIT 33.3 % (36-46); HEMOGLOBIN 9.8 g/dL (12.0-16.0); LYMPHOCYTES # (AUTO) 1.5 K/uL (1.0-4.8); LYMPHOCYTES % (AUTO) 10.7 % (22.0-44.0); MEAN CORPUSCULAR HEMOGLOBIN 22.6 pg (26.0-34.0); MEAN CORPUSCULAR HGB CONC 29.4 G/dL (31.0-37.0); MEAN CORPUSCULAR VOLUME 77 fL (80-100); NEUTROPHILS # (AUTO) 11.5 K/uL (1.8-7.7); NEUTROPHILS % (AUTO) 81.7 % (40.0-70.0); PLATELET COUNT (AUTO) 404 K/uL (150-450); RED BLOOD CELL COUNT(AUTO) 4.34 MIL/uL (4.00-5.20); RED CELL DISTRIBUTION WIDTH 17.3 % (11.5-14.5)
[2021-04-01 13:13] LABS: ALANINE AMINOTRANSFERASE 23 U/L (12-78); ALBUMIN 3.9 g/dL (3.4-5.0); ALKALINE PHOSPHATASE 104 U/L (46-116); ANION GAP 22 mmol/L (8-16); ASPARTATE AMINOTRANSFERASE 37 U/L (15-37); BILIRUBIN,TOTAL 0.9 mg/dL (0.1-1.0); CALCIUM, TOTAL 8.8 mg/dL (8.8-10.5); CARBON DIOXIDE 13 mmol/L (22-29); CHLORIDE 101 mmol/L (98-107); GLOMERULAR FILTR. RATE CALC 59 mL/min (>60); GLUCOSE,RANDOM 90 mg/dL (70-110); SODIUM SERUM 136 mmol/L (136-145); TOTAL PROTEIN, SERUM 7.8 g/dL (6.4-8.2); UREA NITROGEN, BLOOD 17 mg/dL (7-18)
[2021-04-01 13:15] LABS: POTASSIUM 2.8 mmol/L (3.5-5.1)
[2021-04-01] MEDS ORDERED: POTASSIUM CHL 10 MEQ/WATER 50 ML IV SCH (13:30)
[2021-04-01] MEDS ORDERED: POTASSIUM CHLORIDE 20 MEQ ER TABLET PO ONE (13:30)
[2021-04-01] MEDS ORDERED: POTASSIUM CHL 20 MEQ/0.9% NS 1,000 ML IV ONE (14:15)
[2021-04-01] MEDS ORDERED: KETAMINE HCL 50 MG/ML 10 ML VIAL IM ONE (15:30)
[2021-04-01 16:10] LABS: SALICYLATE 3.1 mg/dL (2.8-20.0)
[2021-04-01 16:29] LABS: ACETAMINOPHEN < 2 mcg/mL (10-30); VALPROIC ACID < 3 mcg/mL (50-100)
[2021-04-01] MEDS ORDERED: SODIUM CHLORIDE 0.9% 1,000 ML IV ONE (16:30)
[2021-04-01 18:24] LABS: COVID AG,FIA SOURCE NASOPHARYNGEAL
[2021-04-01 18:44] LABS: ANION GAP 15 mmol/L (8-16); CARBON DIOXIDE 18 mmol/L (22-29); CHLORIDE 105 mmol/L (98-107); CREATININE 0.88 mg/dL (0.60-1.30); GLOMERULAR FILTR. RATE CALC > 60 mL/min (>60); GLUCOSE,RANDOM 109 mg/dL (70-110); POTASSIUM 3.8 mmol/L (3.5-5.1); SODIUM SERUM 138 mmol/L (136-145); UREA NITROGEN, BLOOD 11 mg/dL (7-18)
[2021-04-01] MEDS ORDERED: GuaiFENesin/D-METHORPHAN [SUGAR-FREE] 200-20MG/10 ML SYRUP UDCUP PO PRN ×2 (20:00→20:30)
[2021-04-01] MEDS ORDERED: PROMETHAZINE HCL 25 MG TABLET PO PRN ×2 (20:00→20:30)
[2021-04-01] MEDS ORDERED: LORazepam 2 MG TABLET PO PRN (20:00)
[2021-04-01] MEDS ORDERED: HydrOXYzine PAMOATE 50 MG CAPSULE PO PRN ×2 (20:00→20:30)
[2021-04-01] MEDS ORDERED: TUBERCULIN, PURIFIED PROTEIN DERIVATIVE 5 TU/0.1 ML SYRINGE ID ONE ×2 (20:00→20:30)
[2021-04-01] MEDS ORDERED: OLANZapine 5 MG RAPDIS TABLET PO PRN ×2 (20:00→20:30)
[2021-04-01] MEDS ORDERED: ZOLPIDEM TARTRATE 10 MG TABLET PO PRN (20:30)
[2021-04-01] MEDS: MELATONIN 5 MG TABLET PO SCH (21:00)
[2021-04-01] MEDS ORDERED: MELATONIN 5 MG TABLET PO SCH (21:00)
[2021-04-01] MEDS ORDERED: THIAMINE 100 MG TABLET PO SCH (21:00)
[2021-04-01] MEDS ORDERED: OLANZapine 5 MG RAPDIS TABLET PO SCH (21:00)
[2021-04-01] MEDS: DIVALPROEX SODIUM 500 MG ER TABLET PO SCH ×2 (21:00→21:33)
[2021-04-01] MEDS: OLANZapine 5 MG RAPDIS TABLET PO SCH (21:33)
[2021-04-02 01:56] VITALS: BP 101/48
[2021-04-02] MEDS: THIAMINE 100 MG TABLET PO SCH ×2 (09:00→16:11)
[2021-04-02] MEDS ORDERED: NALTREXONE HCL 50 MG TABLET PO SCH (09:00)
[2021-04-02] MEDS ORDERED: FOLIC ACID 1 MG TABLET PO SCH (09:00)
[2021-04-02] MEDS: MULTIVITAMINS WITH MINERALS, THERAPEUTIC TABLET PO SCH (09:00)
[2021-04-02] MEDS: BuPROPion HCL XL 150 MG ER TABLET PO SCH (09:00)
[2021-04-02] MEDS ORDERED: BuPROPion HCL XL 150 MG ER TABLET PO SCH (09:00)
[2021-04-02] MEDS: OMEGA-3/DHA/EPA/FISH OIL 1,000 MG CAPSULE PO SCH (09:00)
[2021-04-02] MEDS: FOLIC ACID 1 MG TABLET PO SCH (09:00)
[2021-04-02] MEDS: NALTREXONE HCL 50 MG TABLET PO SCH (09:00)
[2021-04-02] MEDS ORDERED: MULTIVITAMINS WITH MINERALS, THERAPEUTIC TABLET PO SCH (09:00)
[2021-04-02] MEDS: OLANZapine 5 MG RAPDIS TABLET PO SCH (19:06)
[2021-04-02] MEDS: MELATONIN 5 MG TABLET PO SCH (19:07)
[2021-04-02] MEDS: DIVALPROEX SODIUM 500 MG ER TABLET PO SCH (19:07)
[2021-04-03 08:07] VITALS: BP 116/70
[2021-04-03] MEDS: FOLIC ACID 1 MG TABLET PO SCH (09:00)
[2021-04-03] MEDS: OMEGA-3/DHA/EPA/FISH OIL 1,000 MG CAPSULE PO SCH (09:00)
[2021-04-03] MEDS: BuPROPion HCL XL 150 MG ER TABLET PO SCH (09:00)
[2021-04-03] MEDS: NALTREXONE HCL 50 MG TABLET PO SCH (09:00)
[2021-04-03] MEDS: THIAMINE 100 MG TABLET PO SCH ×2 (09:00→16:53)
[2021-04-03] MEDS: MULTIVITAMINS WITH MINERALS, THERAPEUTIC TABLET PO SCH (09:00)
[2021-04-03] MEDS ORDERED: LORazepam 2 MG/ML VIAL IM ONE (14:00)
[2021-04-03] MEDS ORDERED: DiphenhydrAMINE HCL 50 MG/ML VIAL IM ONE (14:00)
[2021-04-03] MEDS ORDERED: HALOPERIDOL LACTATE 5 MG/ML VIAL IM ONE (14:00)
[2021-04-03] MEDS ORDERED: PALIPERIDONE PALMITATE 234 MG/1.5 ML SYRINGE IM ONE (16:00)
[2021-04-03] MEDS: LORazepam 2 MG TABLET PO PRN (16:53)
[2021-04-03] MEDS: OLANZapine 10 MG RAPDIS TABLET PO SCH (20:34)
[2021-04-03] MEDS: MELATONIN 5 MG TABLET PO SCH (20:34)
[2021-04-03] MEDS: DIVALPROEX SODIUM 500 MG ER TABLET PO SCH (20:34)
[2021-04-04] MEDS: THIAMINE 100 MG TABLET PO SCH ×2 (08:33→17:00)
[2021-04-04] MEDS: BuPROPion HCL XL 150 MG ER TABLET PO SCH (08:33)
[2021-04-04] MEDS: OMEGA-3/DHA/EPA/FISH OIL 1,000 MG CAPSULE PO SCH (08:33)
[2021-04-04] MEDS: MULTIVITAMINS WITH MINERALS, THERAPEUTIC TABLET PO SCH (08:33)
[2021-04-04] MEDS: FOLIC ACID 1 MG TABLET PO SCH (08:33)
[2021-04-04] MEDS: NALTREXONE HCL 50 MG TABLET PO SCH (08:33)
[2021-04-04] MEDS: MELATONIN 5 MG TABLET PO SCH (21:00)
[2021-04-04] MEDS: OLANZapine 10 MG RAPDIS TABLET PO SCH (21:00)
[2021-04-04] MEDS: DIVALPROEX SODIUM 500 MG ER TABLET PO SCH (21:00)
[2021-04-05] MEDS: BuPROPion HCL XL 150 MG ER TABLET PO SCH (09:00)
[2021-04-05] MEDS: MULTIVITAMINS WITH MINERALS, THERAPEUTIC TABLET PO SCH (09:00)
[2021-04-05] MEDS: OMEGA-3/DHA/EPA/FISH OIL 1,000 MG CAPSULE PO SCH (09:00)
[2021-04-05] MEDS: NALTREXONE HCL 50 MG TABLET PO SCH (09:00)
[2021-04-05] MEDS: FOLIC ACID 1 MG TABLET PO SCH (09:00)
[2021-04-05] MEDS: THIAMINE 100 MG TABLET PO SCH ×2 (09:00→17:10)
[2021-04-05] MEDS: LORazepam 2 MG TABLET PO PRN (12:21)
[2021-04-05 16:06] VITALS: BP 101/60
[2021-04-05] MEDS ORDERED: MAG HYDROX/AL HYDROX/SIMETH ES 30 ML SUSPENSION UDCUP PO PRN (16:15)
[2021-04-05] MEDS: MELATONIN 5 MG TABLET PO SCH (20:32)
[2021-04-05] MEDS: DIVALPROEX SODIUM 500 MG ER TABLET PO SCH (20:32)
[2021-04-05] MEDS: OLANZapine 10 MG RAPDIS TABLET PO SCH (20:33)
[2021-04-06 07:40] LABS: CHOL/HDL RATIO 4.1 (3.9-5.7)
[2021-04-06 08:03] LABS: HEMOGLOBIN A1C 5.6 % (3.8-5.6)
[2021-04-06 08:11] LABS: FREE T4 (FREE THYROXINE) 1.09 ng/dL (0.76-1.46); THYROID STIMULATING HORMONE 0.46 uIU/mL (0.36-3.74)
[2021-04-06] MEDS: OMEGA-3/DHA/EPA/FISH OIL 1,000 MG CAPSULE PO SCH (08:41)
[2021-04-06] MEDS: MULTIVITAMINS WITH MINERALS, THERAPEUTIC TABLET PO SCH (08:41)
[2021-04-06] MEDS: FOLIC ACID 1 MG TABLET PO SCH (08:41)
[2021-04-06] MEDS: NALTREXONE HCL 50 MG TABLET PO SCH (08:41)
[2021-04-06] MEDS: BuPROPion HCL XL 150 MG ER TABLET PO SCH (08:42)
[2021-04-06] MEDS: THIAMINE 100 MG TABLET PO SCH ×2 (08:42→16:09)
[2021-04-06 09:22] VITALS: BP 97/53
[2021-04-06 16:11] VITALS: BP 106/68
[2021-04-06] MEDS: DIVALPROEX SODIUM 500 MG ER TABLET PO SCH (20:57)
[2021-04-06] MEDS: OLANZapine 10 MG RAPDIS TABLET PO SCH (20:57)
[2021-04-06] MEDS: MELATONIN 5 MG TABLET PO SCH (20:57)
[2021-04-07 00:04] VITALS: BP 118/71
[2021-04-07 08:11] VITALS: BP 108/72
[2021-04-07] MEDS: NALTREXONE HCL 50 MG TABLET PO SCH (09:00)
[2021-04-07] MEDS: MULTIVITAMINS WITH MINERALS, THERAPEUTIC TABLET PO SCH (09:00)
[2021-04-07] MEDS: BuPROPion HCL XL 150 MG ER TABLET PO SCH (09:00)
[2021-04-07] MEDS: OMEGA-3/DHA/EPA/FISH OIL 1,000 MG CAPSULE PO SCH (09:00)
[2021-04-07] MEDS: FOLIC ACID 1 MG TABLET PO SCH (09:00)
[2021-04-07] MEDS ORDERED: PALIPERIDONE PALMITATE 156 MG/ML SYRINGE IM ONE (09:00)
[2021-04-07] MEDS: THIAMINE 100 MG TABLET PO SCH (09:00)
[2021-04-07 16:03] VITALS: BP 106/66
[2021-04-07] MEDS: DIVALPROEX SODIUM 500 MG ER TABLET PO SCH (20:15)
[2021-04-07] MEDS: MELATONIN 5 MG TABLET PO SCH (20:15)
[2021-04-07] MEDS: OLANZapine 10 MG RAPDIS TABLET PO SCH (20:15)
[2021-04-08 02:30] VITALS: BP 107/62
[2021-04-08] MEDS: THIAMINE 100 MG TABLET PO SCH ×2 (08:22→16:16)
[2021-04-08] MEDS: OMEGA-3/DHA/EPA/FISH OIL 1,000 MG CAPSULE PO SCH (08:22)
[2021-04-08] MEDS: NALTREXONE HCL 50 MG TABLET PO SCH (08:23)
[2021-04-08] MEDS: MULTIVITAMINS WITH MINERALS, THERAPEUTIC TABLET PO SCH (08:23)
[2021-04-08] MEDS: FOLIC ACID 1 MG TABLET PO SCH (08:23)
[2021-04-08] MEDS: BuPROPion HCL XL 150 MG ER TABLET PO SCH (08:24)
[2021-04-08] MEDS ORDERED: LORazepam 1 MG TABLET ONE ×2 (10:56)
[2021-04-08] MEDS ORDERED: BUPR-49 PO (15:52)
[2021-04-08] MEDS ORDERED: OLAN10TA26 PO ×2 (15:52→17:38)
[2021-04-08] MEDS ORDERED: OMEG-135 PO ×2 (15:52→17:38)
[2021-04-08] MEDS ORDERED: NALT50TA PO (15:52)
[2021-04-08] MEDS ORDERED: DIVA-80 PO ×2 (15:52→17:38)
[2021-04-08] MEDS ORDERED: MELA5TAB3 PO ×2 (15:52→17:38)
[2021-04-08] MEDS ORDERED: NALT50TA6 PO (17:38)
[2021-04-08] MEDS ORDERED: BUPR-93 PO (17:38)
[2021-04-08] MEDS ORDERED: BUPR-317 PO (17:48)
[2021-04-08] MEDS ORDERED: DIVA500T52 PO (17:50)
[2021-04-08] MEDS: MELATONIN 5 MG TABLET PO SCH (20:10)
[2021-04-08] MEDS: OLANZapine 10 MG RAPDIS TABLET PO SCH (20:10)
[2021-04-08] MEDS: DIVALPROEX SODIUM 500 MG ER TABLET PO SCH (20:24)
[2021-04-09 04:05] VITALS: BP 116/70
[2021-04-09] MEDS: NALTREXONE HCL 50 MG TABLET PO SCH (08:43)
[2021-04-09] MEDS: OMEGA-3/DHA/EPA/FISH OIL 1,000 MG CAPSULE PO SCH (08:43)
[2021-04-09] MEDS: FOLIC ACID 1 MG TABLET PO SCH (08:43)
[2021-04-09] MEDS: THIAMINE 100 MG TABLET PO SCH (08:44)
[2021-04-09] MEDS: MULTIVITAMINS WITH MINERALS, THERAPEUTIC TABLET PO SCH (08:44)
[2021-04-09] MEDS: BuPROPion HCL XL 150 MG ER TABLET PO SCH (08:44)
== END 2021-04-09 14:00 | disposition home or self-care (01) | DRG 750 ==
LOC: EMS 11:56 → B3A 20:22
PROVIDERS: ADMIT Psychiatry & Neurology Psychiatry; ATTEND Psychiatry & Neurology Psychiatry
DX: F25.1 Schizoaffective disorder, depressive type (principal); E87.2 Acidosis; E86.0 Dehydration; D50.9 Iron deficiency anemia, unspecified; F31.9 Bipolar disorder, unspecified; I12.9 Hypertensive chronic kidney disease with stage 1 through stage 4 chronic kidney disease, or unspecified chronic kidney disease; J45.909 Unspecified asthma, uncomplicated; N18.9 Chronic kidney disease, unspecified; F41.9 Anxiety disorder, unspecified; K21.9 Gastro-esophageal reflux disease without esophagitis; D72.829 Elevated white blood cell count, unspecified; E87.6 Hypokalemia; Z20.822 Contact with and (suspected) exposure to COVID-19; Z55.9 Problems related to education and literacy, unspecified; Z59.9 Problem related to housing and economic circumstances, unspecified; Z65.3 Problems related to other legal circumstances; Z79.899 Other long term (current) drug therapy
CPT/HCPCS: 80048; 80053; 80061; 80164; 83036; 83735; 84439; 84443; 85025; 99285; A9575; G0480; G0481; J1200; J1630; J2060; J3480; J3490; J7030